=== PATIENT | female | born 1945 | race Caucasian/White ===

== ENCOUNTER → 2024-08-28 11:18 | Outpatient (REF) | payer OTHER, SELFPAY | LOC: RAD 11:18 | PROVIDERS: ATTENDING PHYSICIAN Student in an Organized Health Care Education/Training Program; FAMILY PHYSICIAN Nurse Practitioner Adult Health | DX: I35.0 Nonrheumatic aortic (valve) stenosis (principal) | CPT/HCPCS: 74174; 75572; Q9967 ==

== ENCOUNTER 2024-09-27 05:23 | Inpatient (IN) | payer OTHER, SELFPAY ==
[2024-09-21 08:16] VITALS: BMI 24.3
[2024-09-21 08:57] LABS: % Basophils 0.4 % (0-2); % Eosinophils 1.4 % (0-6); % Immature Granulocytes 0.3 % (0-0.5); % Lymphocytes 29.3 % (20.5-51.1); % Neutrophils 60.6 % (42.2-75.2); Absolute Eosinophils 0.1 10^3/uL (0-0.7); Absolute Lymphocytes 2.7 10^3/uL (1.2-3.4); Absolute Monocytes 0.8 10^3/uL (0.1-0.6); Absolute Neutrophils 5.7 10^3/uL (1.4-6.5); Hematocrit 40.4 % (37.0-47.0); Hemoglobin 13.5 g/dL (12.0-16.0); Mean Corp Hgb Conc. 33.4 g/dL (33.0-37.0); Mean Corpuscular Hgb 33.3 pg (27.0-31.0); Mean Corpuscular Volume 99.5 fL (81.0-99.0); Mean Platelet Volume 9.4 fL (7.4-10.4); Nucleated Red Blood Cells % 0 %; Platelet Count 202 10^3/uL (130-400); Red Blood Cell Count 4.06 10^6/uL (4.20-5.40); Red Cell Dist. Width 14.3 % (11.5-14.5); White Blood Cell Count 9.3 10^3/uL (4.8-10.8)
[2024-09-21 08:59] LABS: INR 0.92; PT 12.6 Sec (11.4-14.6)
[2024-09-21 09:00] LABS: APTT 25.4 Sec (23.4-35.0)
[2024-09-21 09:24] LABS: ALT (SGPT) 23 U/L (0-35); AST (SGOT) 26 U/L (14-36); Albumin 4.3 g/dl (3.5-5.0); Alkaline Phosphatase 81 U/L (38-126); Blood Urea Nitrogen 22 mg/dl (7-17); Calcium 9.5 mg/dl (8.4-10.2); Carbon Dioxide 28 mmol/L (22-30); Chloride 106 mmol/L (98-107); Direct Bilirubin 0.1 mg/dl (0.0-0.4); Estimated Creatinine Clearance 42 ml/min; Glucose 84 mg/dl (70-99); Potassium 3.9 mmol/L (3.5-5.1); Sodium 140 mmol/L (135-145); Total Bilirubin 0.8 mg/dl (0.2-1.3); Total Protein 6.5 g/dl (6.3-8.2); eGFR 57.66
[2024-09-21 09:38] LABS: Urine Albumin 2+ (Neg - Trace); Urine Bilirubin Negative (Negative); Urine Character Cloudy (Clear); Urine Color Yellow; Urine Glucose Negative (Negative); Urine Ketone Negative (Negative); Urine Leukocyte 1+ (Negative); Urine Nitrite Positive (Negative); Urine Occult Blood 3+ (Negative); Urine Specific Gravity 1.005 (<1.030); Urine Urobilinogen Negative (Neg - 1+)
--- NOTE | 2024-09-21 09:44 | W.PN.UPDATE ---
Update Note
Progress Note Update
Assessed Ms. Lopez in preadmission testing and confirmed medication list. She will hold fish oil starting 09/22/2024. Aspirin 81 mg initiated on 09/22/2024 and will continue including the morning of TAVR. She will arrive to the [facility] at 0530.
Informed patient that she will receive a phone call on Tuesday09/26/2024 to confirm time and location of arrival. Allowed for and answered questions.
[2024-09-21 10:23] LABS: Glycohemoglobin (HgbA1c) 5.3 % (4.0-5.6)
--- NOTE | 2024-09-21 10:37 | CM ---
Chart reviewed. Met with the patient in PAT. Reviewed preoperative and postoperative instructions, along with showering guidelines. Gave patient 2 soaps. Patient is agreeable to a home visit by CT Transitional RN. Patient is independent of
ADLS, lives alone in a 1 STH, 2 PIPPA, 0 DME. Patient son to transport patient home, but will not be staying with her. Plan is for the patient to return home with CT Transitional RN.
[2024-09-21 10:56] LABS: Urine Squamous Cell >30 /LPF (Few)
[2024-09-21 10:57] LABS: Urine Amorphous Seen
[2024-09-21 10:58] LABS: Urine Bacteria Many (Negative)
[2024-09-27] VITALS (18 sets, daily range): BP systolic 116–152; BP diastolic 51–111; BMI 24.0
--- NOTE | 2024-09-27 06:01 | W.CVOR.SURPR ---
CVOR Surgeon Immed Pre Op
-
I have examined this patient prior to performance of the scheduled procedure.
The patient's condition is unchanged from the time of the dictated/written History and
Physical and the patient is able to undergo the scheduled procedure.
I reviewed the plan of care and went over the TAVR procedure in detail. We discussed the risks and benefits, including but
not limited to PPM requirement (30%), stroke (2-3%), vascular injury (3%), valve embolization (1%), etc. She has
decided should it be needed to be ok for CPR/Shocks/Sternotomy/CPB. Consent was obtained. All questions answered to best of
my ability.
--- NOTE | 2024-09-27 06:30 | PTCARENOTE ---
Pt admitted for TAVR- clipped an prep complete- Dr. Buchanan in to see pt- Consent signed and placed on the front of the chart. Pt ambulates in the room as a self. SR on the monitor. Strength equal b/l.
[2024-09-27 08:27] LABS: ACT-LR - POC 236 Seconds (116-155)
[2024-09-27 08:34] LABS: ACT-LR - POC 232 Seconds (116-155)
--- NOTE | 2024-09-27 08:41 | CM ---
Reviewed chart. Mrs. Lopez is in the operating room today. Prior to admission she resides alone in a one story home with two steps to enter. Prior to admission she was independent with ambulation and adls. She does not have any DME in the home.
Will need to see her current functional level to see if she will h ave any skilled care needs. Medical work-up in progress. The discharge plan is to return home with home with a home visit by the Transitional Care Nurse when medically stable.
[2024-09-27 08:48] LABS: ACT-LR - POC 355 Seconds (116-155)
--- NOTE | 2024-09-27 09:04 | W.PN.CT.SURG ---
CT Surgery Operative Note
-
OPERATIVE REPORT
Preoperative Diagnosis: Severe aortic valve stenosis, symptomatic
Postoperative Diagnosis: Same
Procedure(s) Performed: Right trans femoral TAVR with a 26 mm Medtronic Evolut FX + device with BAV pre and post deployement
Date of Procedure: 09/27/2024
Comorbidities:
1. Severe symptomatic aortic stenosis, symptomatic
2. Hypertension
3. Hyperlipidemia
4. COPD
5. Osteoporosis
6. CAD
7. Renal insufficiency
8. IBS
9. Glaucoma
10. Smoker
Cardiac Surgeon: Coleman Buchanan MD, MS
Air Pollution Engineer: Brant Ludwig MD, PhD
Anesthesia: Conscious Sedation, Local
EBL: 100cc
Products: none
Implant: Medtronic Evolut 26mm FX + SN: [id number]
Indication(s) for Procedures: 79-year-old female with severe aortic stenosis. Symptomatic. CT-TAVR protocol revealed acceptable anatomy for a self-expanding TAVR valve.
Start time: 0752hrs
Deployment time: 0837hrs
End time: 0858hrs
Radiation Dose (mGy): 398.44
DAP (cm2.Gy): 37.4887
Fluoroscopy time (minutes): 17.9
Contrast volume (ml): 106
TAVR gradient (mmHg): 8mmHg
Heparin Dose: [id number]
Protamine Dose: 40mg
Final Valve Positioninmm:4mm
Recaptures: 2
Findings: Preoperative LVEF was 60% and was 70% following TAVR without inotropic support. Function was overall normal without regional wall motion abnormalities or dyskinesia. Following the initial deployment attempt, the valve did not appear to be
expanded at all, at this point we recaptured the valve and exchanged the device sheath for the original working sheath and performed a BAV with an 18 mm balloon. This was under rapid pacing. Again over the stiff wire within exchanged the working
sheath for the device. On this deployment the device appeared to be flowering better. At the conclusion of this deployment, transthoracic echocardiogram yielded a high-grade of approximately 14 mmHg with mild degree of paravalvular leak. On
fluoroscopy, the valve appeared to be somewhat underexpanded at the level of the scar. We opted to exchange the device sheath 1 more time for the working sheath and performed another balloon valvuloplasty with a 20 mm true balloon. Transthoracic
echocardiogram then demonstrated slight improvement in the paravalvular leak and a significant drop in the mean gradient to approximately 8 mmHg. Overall, the aortic valve was well seated with only trace to mild PVL. The patient did not require
pacing postoperative and was in sinus rhythm. There was successful placement of 26 mm Evolut FX+ TAVR valve without acute complications.
Access:
1. Device - R SECURITY INCIDENT RESPONSE ENGINEER, perclose x 2
2. Pigtail - L SECURITY INCIDENT RESPONSE ENGINEER + 6Fr angioseal
3. Transvenous Pacer - L CFV
Description of Procedure: The patient was taken to the woven label designer. Their identity and procedure to be performed were verified and they were positioned supine on the woven label designer table. Induction via conscious sedation with local analgesia. The patient was
then prepped and draped from chin to thigh in a sterile fashion. A preoperative time-out was performed with all members of the team present. Using fluoroscopy, bilateral femoral heads and their margins were identified. Arterial and venous access
were done with a micropuncture needle with Seldinger technique. Test pacing revealed capture with excellent threshold. Angiography confirmed proper puncture site and femoral artery integrity. Two Per-Close devices were used on the TAVR side. An AL1
catheter was used to deliver a extrastiff wire and insertion of the working sheath. An AL1 catheter with a straight stiff wire was used to access the LV. The stiff wire was then exchanged for a pigtail and LVEDP was measured here which is found to
be 19 mmHg. This was exchanged for Lunderquist wire. The valve was prepped and mounted on to the device carrier. An ACT of >250 was achieved. We verified x 3 under fluoroscopy that the valve was mounted correctly with paddles in appropriate
position. We than set our parameters to achieve a co-planar view with the pigtail positioned in the NCC. We advanced the device with it's in-line sheath into the descending thoracic aorta and over the arch into the root and positioned across the
aortic valve. Contrast fluoroscopy was used to visualize the prosthesis across the valve. We performed a quick pre-deployment time out. We verified positioning based on the pigtail and gentle contrast puffs. The valve was slowly deployed however on
the initial deployment attempt, it appeared the valve was not expanding at all. The device was then recaptured they pulled out the inline sheath and exchanged for the working sheath. While maintaining LV access with a stiff wire. We performed a
balloon valvuloplasty with an 18 mm true balloon under rapid pacing. We then reexchanged the working sheath for the inline sheath and again crossed the valve with the position located in the noncoronary cusp appendage here. Contrast was used to
verify depth and once we had annular contact under pacing at 120 bpm we then rotated L and looked at the left coronary cusp. It appeared to be a little bit shallow and so we partially recaptured device here and advanced to just 1 to 2 mm with good
effect. Device was then deployed fully until all paddles were off. The deployment device was withdrawn into the descending thoracic aorta while maintaining wire access across the valve. A transthoracic echocardiogram was performed which revealed a
mild degree of aortic valve insufficiency however more concerning lately the mean gradient was approximately 14 mmHg. We opted to exchange the working sheath back in place and this time performed a balloon valvuloplasty with a 20 mm true size
balloon. Transthoracic echo revealed an significant improvement in the mean gradient across the valve and reduction in paravalvular leak. This appeared to be acceptable now. The balloon was then removed from the groin and the sheath was removed
after exchanging for a J-wire. We then tightened down the Perclose devices and found that there was acceptable hemostasis. The pigtail was repositioned into the descending/abdominal and runoff aortogram was performed. There was no significant
stenosis or dissection of the bilateral iliofemoral systems with excellent runoff to the SFAs. All wires were removed and perclose snugged and cut. There was acceptable hemostasis of bilateral groins. 40 mg of protamine was given.
All instrument, sponge, and needle counts were confirmed to be correct x 2 at the end of the operation. The patient was transferred to the cardiac intensive care unit in stable condition.
I, Dr. Coleman Buchanan, was present, scrubbed for, and performed all critical elements of this procedure.
Coleman Buchanan MD, MS
Cardiothoracic Surgeon
[facility]
This operative dictation was created using the [employer] dictation system. Please excuse any grammatical, typographical, or 'sound alike' errors
[2024-09-27] MEDS: ANCEF IV (10:56)
[2024-09-27] MEDS: ANCEF 10 IV (10:56)
[2024-09-27] MEDS: ANESTHETIC LOZENGE 1 LOZENGE PO (11:49)
[2024-09-27] MEDS: ASPIR LOW (ENTERIC COATED) PO (11:50)
--- NOTE | 2024-09-27 13:24 | ITS.CL.PN ---
Automobile Mechanic - Procedure Note
Procedure
Procedure Note:
Procedure Note:
TRANSCATHETER AORTIC VALVE REPLACEMENT REPORT
Date of Procedure: 09/27/2024
Referring: Dr. Ben Valdovinos MD
Indication: severe symptomatic aortic stenosis
Operators: Marcial Ludwig MD, PhD (interventional cardiology); Dr. Coleman Buchanan MD (CT surgery)
Anesthesia: conscious sedation provided by the anesthesia staff
PROCEDURE: transfemoral, transcatheter aortic valve replacement with a Medtronic Evolut 26 mm Valve
ACCESS:
1. 6F left femoral vein (closure: manual hemostasis)
2. 6F left common femoral artery (closure: Angioseal)
3. 14 F right common femoral artery (closure: Perclose x2)
ULTRASOUND GUIDED VASCULAR ACCESS (left femoral vein): Ultrasound was utilized for vascular access. The vessel was visualized under ultrasound and noted to be patent. An image of the vessel was stored permanently in the patient's medical record.
Under direct ultrasound guidance, vascular access was obtained using a modified Seldinger technique and a 6 Mongolian sheath was placed.
ULTRASOUND GUIDED VASCULAR ACCESS (left femoral artery): Ultrasound was utilized for vascular access. The vessel was visualized under ultrasound and noted to be patent. An image of the vessel was stored permanently in the patient's medical record.
Under direct ultrasound guidance, vascular access was obtained using a modified Seldinger technique and a 6 Mongolian sheath was placed.
ULTRASOUND GUIDED VASCULAR ACCESS (right femoral artery): Ultrasound was utilized for vascular access. The vessel was visualized under ultrasound and noted to be patent. An image of the vessel was stored permanently in the patient's medical record.
Under direct ultrasound guidance, vascular access was obtained using a modified Seldinger technique and a 8 Mongolian sheath was placed.
HEMODYNAMIC DATA
LVEDP 15 mmHg
PROCEDURE NARRATIVE:
The patient was prepped and draped in standard sterile fashion. Conscious sedation was provided by the anesthesia staff. 6F left femoral vein and left common femoral artery access was obtained with ultrasound guidance using micropuncture technique
with verification of appropriate arteriotomy location via hand injection angiography. A temporary venous pacing wire was advanced via the left femoral vein to the right ventricle under fluoroscopic guidance with appropriate capture verified. A 5F
pigtail catheter was advanced via the left common femoral artery and seated in the non-coronary cusp. Angiography was performed to verify the cusp overlap angle.
8F right common femoral artery access was obtained with ultrasound guidance using micropuncture technique with verification of appropriate arteriotomy location via hand injection angiography. The arteriotomy was preclosed with two Perclose sutures
followed by replacement of the 8F sheath. Using an AL1 catheter, a Lunderquist wire was placed in the descending thoracic aorta. Over the Lunderquist, a 14F Cook sheath was placed. Heparin was given. The AL1 catheter was re-advanced through the
sheath to the level of the ascending aorta. The Lunderquist wire was exchanged for a soft tipped straight wire which was used to cross the aortic valve and deposit the AL1 in the LV apex. A J-wire was used to exchange the AL1 for a pigtail catheter
in the LV and LVEDP was measured. The Lunderquist wire was advanced through the pigtail catheter and seated in the LV apex. ACT was checked and confirmed to be >300 seconds.
The valve was inspected under fluoroscopy to confirm lack of infolding above the 4th node. The Cook sheath was removed, and the in-line sheath was advanced over the Lunderquist wire into the descending aorta. The valve was then advanced over the
aortic arch and into the left ventricle. In the cusp overlap view, the valve was slowly deployed to the point of flowering. The patient was paced to adequately lower pulse pressure as the valve was deployed through the rumble strips to 80%. There
was noted to be poor expansion of the valve suggestive of either significant calcification preventing valve expansion or possibly infolding. Thus, the valve was walked back to the descending aorta and removed from the body maintaining wire position
in the LV. The 14F sheath was replaced. The decision was made to perform balloon valvuloplasty prior to valve implantation.
A 18 mm True valvuloplasty balloon was advanced over the Lunderquist wire and into the aortic annulus. Valvuloplasty was performed under rapid pacing with good balloon expansion. The valvuloplasty balloon was removed.
The valve was reloaded and reinspected under fluoroscopy to confirm lack of infolding above the 4th node. The Cook sheath was removed, and the in-line sheath was advanced over the Lunderquist wire into the descending aorta. The valve was then
advanced over the aortic arch and into the left ventricle. In the cusp overlap view, the valve was slowly deployed to the point of flowering. The patient was paced to adequately lower pulse pressure as the valve was deployed through the rumble
strips to 80%. Injection demonstrated a non-coronary cusp implant depth of 3 mm. Angiography performed in an CROATIAN projection demonstrated left coronary cusp implant depth of -1 mm. Thus, a partial recapture was performed, the valve was advanced, and
redeployment was then performed with left coronary depth now 3 mm. The decision was made to proceed with full deployment. The Lunderquist wire was partially withdrawn to lift the nose cone of the valve delivery device. In the CROATIAN view, the delivery
handle was slowly rotated until both paddles were released from the superior aspect of the valve. The delivery device was withdrawn to the descending aorta and re-assembled. The patient was resuscitated by anesthesia with recovery of adequate blood
pressure. Telemetry demonstrating sinus rhythm. Aortography demonstrated good valve positioning, adequate coronary filling, and no significant aortic valve insufficiency. Echocardiography demonstrated at least mild paravalvular aortic insufficiency.
Mean valve gradient was 14 mmHg. The decision was made to proceed with valve post dilation. The valve delivery system was removed and replaced with a 14F Cook sheath. The Lunderquist valve was advanced across the valve.
A 20 mm True valvuloplasty balloon was advanced over the Lunderquist wire and into the aortic annulus. Valvuloplasty was performed under rapid pacing with good balloon expansion. The valvuloplasty balloon was removed. The valve was noted to display
better expansion on floroscopy. Echo was repeated and demonstrated improvement of the paravalvular leak (now mild) and decreased gradient to 9 mmHg.
The Cook sheath was removed and hemostasis obtained with the two Perclose sutures. Protamine was given. Aortoiliac angiography demonstrated no evidence of iliofemoral dissection/perforation and good runoff below the common femoral artery
bilaterally. The pacemaker and the pigtail catheter were removed. The left femoral artery sheath was removed using a 6F Angioseal. The left femoral venous sheath was removed with manual pressure.
RADIATION: dose to 98 mGy; DAP 33.4 Gy*cm2; fluoroscopy time 9.9 min
CONCLUSION: successful placement of a Evolut Fx Plus 26 mm transcatheter aortic valve via right transfemoral approach with no acute complications
Copy to: Dr. Ben Valdovinos MD (sweatband drummer); ESTRELLA Thompson (PCP)
Signed: Marcial Ludwig MD, PhD
--- NOTE | 2024-09-27 13:28 | W.PN.UPDATE ---
Update Note
Progress Note Update
Reviewed Ms. Lopez with the heart team in the preTAVR SDM and confirmed a 26mm EvolutFx+ via transfemoral access. Patient will resume aspirin post TAVR. LVEDP 19 mmHg. #26mm Evolut FX+ (serial# [id number]) successfully deployed via right transfemoral
access. Post implant MG 8mmHg.
[2024-09-27] MEDS: NON-FORMULARY ITEM INH (15:51)
[2024-09-27] MEDS: CRESTOR 10 MG PO (16:43)
[2024-09-27] MEDS: ANCEF 5 IV (16:44)
[2024-09-27] MEDS: TYLENOL 650 MG PO (18:34)
--- NOTE | 2024-09-27 19:29 | PTCARENOTE ---
Pt received from recovery area post TAVR. Bilateral femoral sites with dry and intact dressings, no sign of bleeding or hematoma. Telemetry showed sinus rhythm. Pt OOB with assist of one, slightly unsteady and at risk to fall, precautions in place,
pt calls for assistance. Temp 99.3 in evening, pt encouraged to use IS, given tylenol for mild right groin tenderness. Plan for ECHO on 09/28.
--- NOTE | 2024-09-28 00:57 | PTCARENOTE ---
Received patient at change of shift. A&Ox3. Vitals stable. Right femoral site clean, dry and intact. Soft to touch, little tender, little ecchymosis. Left groin site clean, dry, and intact. Soft to touch, little ecchymosis. Discussed plan of care
for evening. Patient verbalized understanding. Call thomas within reach.
[2024-09-28 04:45] VITALS: BP 119/62
--- NOTE | 2024-09-28 05:11 | W.PN.CT ---
Today's Communication / Plan
-
-pod #1
-no issues overnight
-nsr 80s. No cameron or pauses
-prolonged Qt -monitor
-labs pending
-Echo today
-current meds (ASA, Crestor)
-encourage IS, ambulate
-possible d/c
Assessment / Plan
-
- Severe symptomatic aortic valve stenosis- s/p Right trans femoral TAVR with a 26 mm Medtronic Evolut FX + device with BAV pre and post deployment on 09/27/24, pod #1
- Intraop TTE: LVEF was 60% pre and was 70% following TAVR without inotropic support, no wma or dyskinesia. Overall, the aortic valve was well seated with only trace to mild PVL.
- Hypertension
- Hyperlipidemia
- COPD
- Osteoporosis
- CAD
- Renal insufficiency
- IBS
- Glaucoma
- Smoker
Discussed patient care with: Nursing and Care Team
Subjective
-
Date of Service: September 27, 2024
Objective Data
-
Lab Results
09/21/24 08:26
09/21/24 08:26
PT 12.6 Sec (11.4-14.6) 09/21/24 08:26
INR 0.92 09/21/24 08:26
APTT 25.4 Sec (23.4-35.0) 09/21/24 08:26
Vital Signs
Vital Signs
Temp Pulse Resp BP Pulse Ox
98 F 98 16 130/57 95
09/27/24 19:49 09/27/24 18:30 09/27/24 19:49 09/27/24 14:46 09/27/24 19:49
CT Intake/Output/Weight
09/27/24 09/27/24 09/28/24
06:59 18:59 06:59
Intake Total 1739 / 1739
Balance 1739
SaO2: 95
Physical Exam
-
General: Awake and AOx3
Cardiovascular: Regular rate & rhythm and Murmur (1/6 systolic @ L midclav)
Respiratory: Clear and Decreased Breath Sounds
Incision: Other (groins are cdi, soft, no hematoma b/l)
Extremities: No Edema (DPs 2+ b/l)
Abdomen: soft, nontender, nondistended, + bowel sounds
Data Reviewed
-
Lab Results: Results Reviewed
Medications: Active Meds Reviewed
Chest X-Ray: Report Reviewed and Image Reviewed
ECG: Report Reviewed and Image Reviewed
[2024-09-28 06:00] VITALS: BMI 24.2
--- NOTE | 2024-09-28 06:08 | PTCARENOTE ---
Assumed care of pt at 0400. SR on TELE monitor, VSS, and AAO*3. Bilateral groin sites CDI. Pt denies any pain or discomfort and resting with call thomas in reach. Plan of care ongoing, see MAR and flowchart for full pt assessment.
--- NOTE | 2024-09-28 07:15 | W.DCSUMMARY ---
Discharge Summary
Discharge Data
Date of Admission: 09/27/24
Date of Discharge: 09/28/24
Total time spent discharging patient (in min): 25
-
Pending Results: No
Hospital Course
Primary care physician:
Dr. Erin Oliva
Outpatient name plate stamper:
Dr. Ben Valdovinos
Inpatient consultants:
CBC
Procedures:
1. Right trans femoral TAVR with a 26 mm Medtronic Evolut FX + device with BAV pre and post deployment
Primary Diagnosis:
1. Severe aortic stenosis
Secondary Diagnoses:
1. Hypertension
2. Hyperlipidemia
3. COPD
4. Osteoporosis
5. CAD
6. Renal insufficiency
7. IBS
8. Glaucoma
9. Smoker
HPI: 79-year-old female presented electively on 09/27 for a elective transfemoral transcatheter aortic valve replacement with Dr. Buchanan.
Hospital course: Patient was electively admitted on 09/27 for a transcatheter aortic valve replacement with Dr. Buchanan. 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 B/l groins remain stable. She was sent to IVU for the remainder
of their recovery. On 09/28, POD #1, B/L groins remained stable. Repeat TTE showed Left ventricular ejection fraction is 70-75% s/p 26mm Medtronic Evolut TAVR. Peak gradient 20mmHg/Mean gradient 12mmHg. Mild aortic regurgitation. She was deemed
stable for discharge.
Home medication changes:
See below
Discharge Plan
-
Patient Disposition: Home (Routine Discharge)
Discharge Diagnosis/Procedures: TF TAVR
Condition: Good
Diet: Low Fat, Low Cholesterol and 2 Gram Sodium
Activity: No strenuous activity
Driving Restrictions: No driving for 1 week
Bathing Restrictions: OK to Shower
Others Tests: Your 30-day follow up echocardiogram is scheduled for: 10/30/24 @ 12:[address] Valdovinos's office
Other Services: Cardiac Rehab
Wound Care: NO lotions, powders, or creams to puncture sites
Specialty Instructions: Weigh Daily- Call MD for wt gain/loss 3 lbs overnight/5 lbs in 1 week
Activity Restrictions/Additional Instructions:
Please call [facility] to schedule Cardiac Rehab [phone].
Referrals:
CT Transitional Care Nurse [Outside] - in one to two days (The Cardiothoracic Transitional Care Nurse will call you to set up a visit in 1-2 days.)
Ben Valdovinos MD [Active] - 11/05/24 11:00 am
Erin Oliva CRNP [Family Provider] - in four to six weeks (Please make an appointment in four to six weeks. )
Prescriptions:
New
acetaminophen 325 mg Tablet
650 mg PO Q4HPRN PRN (Reason: ROBLEDO, mild pain, or fever >101F) Qty: 0 0RF
Continued
ascorbic acid (vitamin C) [Vitamin C] 1,000 mg Tablet
1 g PO DAILY
zinc acetate 50 mg (zinc) Capsule
50 mg PO DAILY
fluticasone propionate 50 mcg/actuation [employer],Suspension
2 spray INTRANASAL DAILY
rosuvastatin 10 mg Tablet
10 mg PO DAILY
cholecalciferol (vitamin D3) [Vitamin D3] 50 mcg (2,000 unit) Capsule
50 mcg PO DAILY
Centrum Women 18-400 mg-mcg Tablet
1 tab PO DAILY
Trelegy Ellipta 100-62.5-25 mcg Blister With Device
1 inh INHALATION DAILY
aspirin 81 mg Tablet
81 mg PO DAILY
Held
omega 4-ofy-hzv-fish oil [Fish Oil] 1,200 (144-216) mg Capsule
1 cap PO DAILY
Hold Instructions: Resume on 10/05/24.
Discharge Orders:
Discharge Patient (As Directed); Ordered 09/28/24
Ordered By: Shilpi Louis
Care Plan Goals
Care Plan Goals:
Problem: Readiness for enhanced knowledge related to diagnosis and treatment plan
Goal: Understand your diagnosis and treatment plan needs, including medications if applicable.
Instructions: Know your diagnosis, underlying causes and treatment plan options, including medications if applicable. Consult with your health care team to learn about your diagnosis and treatment plan, including medications if applicable.
Discharge Date and Time
Print Language: ROMANIAN
[2024-09-28] MEDS: NON-FORMULARY ITEM 1 INH INH (08:33)
[2024-09-28 08:42] LABS: Hematocrit 33.1 % (37.0-47.0); Hemoglobin 11.2 g/dL (12.0-16.0); Mean Corp Hgb Conc. 33.8 g/dL (33.0-37.0); Mean Corpuscular Hgb 33.1 pg (27.0-31.0); Mean Corpuscular Volume 97.9 fL (81.0-99.0); Mean Platelet Volume 9.7 fL (7.4-10.4); Platelet Count 127 10^3/uL (130-400); Red Blood Cell Count 3.38 10^6/uL (4.20-5.40); White Blood Cell Count 8.2 10^3/uL (4.8-10.8)
[2024-09-28 09:09] LABS: Blood Urea Nitrogen 18 mg/dl (7-17); Calcium 9.1 mg/dl (8.4-10.2); Carbon Dioxide 24 mmol/L (22-30); Chloride 106 mmol/L (98-107); Estimated Creatinine Clearance 42 ml/min; Glucose 107 mg/dl (70-99); Potassium 4.2 mmol/L (3.5-5.1); Sodium 136 mmol/L (135-145); eGFR 57.66
[2024-09-28] MEDS: ASPIR LOW (ENTERIC COATED) 81 MG PO (09:10)
[2024-09-28] MEDS: CRESTOR PO (09:11)
--- NOTE | 2024-09-28 10:06 | CM ---
Reviewed chart. Met with Mrs. Lopez to review discharge plans. She states she is feeling great and is hooing to go home soon. She states prior to admission she reside alone in a one story home with one step to enter. She states prior to admission
she was independent with ambulation and adls. She states she has a rolling walker at home from her knee surgery but currently not using it. She states she has a prescription plan and uses [facility]. She states she has four granddaughter who
will be checking on her over the weekend. One granddaughter resides just around the corner from her. We reviewed a home visit by the Transitional Care Nurse. She is agreeable to a home visit. Medical work-up in progress. The discharge plan is to
return home with family support and a home visit by the Transitional Care Nurse when medically stable.
--- NOTE | 2024-09-28 10:07 | W.PN.ANS.POP ---
Anesthesia Post Operative
- Anesthesia Post Op Note
Vital Signs Stable-See Nursing Note: Yes
Airway Patent: Yes
Adequate Pain Control: Yes
Change in Mental Status: No
Current Postoperative Nausea & Vomiting: No
Anesthesia Complications: No
General Anesthetic Recall: No
Unplanned Admission: No
Post Op Hydration Adequate: Yes
- -
Pt awake and alert having [place] done at post op visit, no anesthesia r/t c/o at time of visit.
[2024-09-28 10:19] VITALS: BP 118/62
[2024-09-28 10:52] VITALS: BP 131/76
[2024-09-28 11:19] VITALS: BP 118/62; BP 131/76; PULSE 82; O2SAT 97
[2024-09-28 11:38] VITALS: BP 122/53
--- NOTE | 2024-09-28 13:06 | W.PN.CD ---
Today's Communication / Plan
-
home
Impression / Plan
-
Suzi Lopez is a 79 year old woman with past medical history significant for severe symptomatic aortic stenosis s/p Medtronic Evolute FX+ TAVR valve 09/27/24 (Chanel/Oziel). Post-dilation was performed after initial valve deployment with
reduction in mean gradient from 14 to 9 mmHg.
Patient did well overnight. No rhythm issues. Groin soft. Feels well with ambulation
TTE this morning reviewed and demonstrates hyperdynamic LVEF and TAVR gradient 12 mmHg. Labs stable Hb and Cr. Tele sinus rhythm.
Plan:
- discharge to home with outpatient follow up with outpatient cardiology Ben Valdovinos
- repeat TTE at 1 month
- cardiac rehab
- cont. asa/crestor
Physical Exam
Vital Signs/Labs
Vital Signs
Temp Pulse Resp BP Pulse Ox
36.7 C 108 16 119/62 96
09/28/24 11:40 09/28/24 08:37 09/28/24 11:40 09/28/24 04:45 09/28/24 11:40
09/27/24 09/28/24 09/29/24
06:59 06:59 06:59
Actual Weight 65.3 kg 66.1 kg
09/28/24 08:19
09/28/24 08:20
PT 12.6 Sec (11.4-14.6) 09/21/24 08:26
INR 0.92 09/21/24 08:26
APTT 25.4 Sec (23.4-35.0) 09/21/24 08:26
Physical Exam
Constitutional: No acute distress
Cardiovascular: Rhythm & rate is regular
Respiratory: Respiratory effort normal
Neuro/Psych: AO x 3
Other: Cath Site (cdi)
Data Reviewed
-
Date of Service: September 28, 2024
Medical Decision Making: Reviewed Test Results
EKG: Tracing Personally Visualized and interpreted
Echo: Tracing Personally Visualized and interpreted
Labs: Labs Reviewed by me
== END 2024-09-28 14:15 | disposition home or self-care (01) | DRG 267 ==
LOC: IVU 05:23
PROVIDERS: Physician Assistant Medical; ADMITTING PHYSICIAN Thoracic Surgery (Cardiothoracic Vascular Surgery); FAMILY PHYSICIAN Nurse Practitioner Adult Health
PROC: B44LZZZ Ultrasonography of Femoral Artery (ICD-10-PCS; 2024-09-27)
PROC: 02RF38N Replacement of Aortic Valve with Zooplastic Tissue, using Rapid Deployment Technique, Percutaneous Approach (ICD-10-PCS; 2024-09-27)
PROC: 027F3ZZ Dilation of Aortic Valve, Percutaneous Approach (ICD-10-PCS; 2024-09-27)
DX: I35.0 Nonrheumatic aortic (valve) stenosis (principal); I10 Essential (primary) hypertension; E78.5 Hyperlipidemia, unspecified; J44.9 Chronic obstructive pulmonary disease, unspecified; M81.0 Age-related osteoporosis without current pathological fracture; I25.10 Atherosclerotic heart disease of native coronary artery without angina pectoris; N28.9 Disorder of kidney and ureter, unspecified; K58.9 Irritable bowel syndrome, unspecified; H40.9 Unspecified glaucoma; F17.200 Nicotine dependence, unspecified, uncomplicated; Z60.2 Problems related to living alone; Z88.2 Allergy status to sulfonamides; Z88.1 Allergy status to other antibiotic agents
CPT/HCPCS: 93308; 33361; 36415; 71045; 71046; 76937; 80048; 80053; 81003; 81015; 82248; 83036; 85025; 85027; 85347; 85610; 85730; 86850; 86900; 86901; 87070; 87086; 93005; 93321; 93325; 94640; C1760; C1769; C1894; Q9967

== ENCOUNTER 2024-12-05 10:16 | Outpatient (RCR) | payer OTHER, SELFPAY | END 2024-12-05 23:59 | disposition home or self-care (01) | LOC: CRHB 10:16 | PROVIDERS: ATTENDING PHYSICIAN Internal Medicine Interventional Cardiology; FAMILY PHYSICIAN Nurse Practitioner Adult Health | DX: Z95.4 Presence of other heart-valve replacement (principal) | CPT/HCPCS: 93797; 93798; G0422; G0423 ==

== ENCOUNTER 2025-01-07 10:03 | Outpatient (RCR) | payer OTHER, SELFPAY | END 2025-01-07 23:59 | disposition home or self-care (01) | LOC: CRHB 10:03 | PROVIDERS: ATTENDING PHYSICIAN Internal Medicine Interventional Cardiology; FAMILY PHYSICIAN Nurse Practitioner Adult Health | DX: Z95.4 Presence of other heart-valve replacement (principal); I25.10 Atherosclerotic heart disease of native coronary artery without angina pectoris (principal) | CPT/HCPCS: G0422; G0423 ==

== ENCOUNTER 2025-02-04 10:13 | Outpatient (RCR) | payer OTHER, SELFPAY | END 2025-02-04 23:59 | disposition home or self-care (01) | LOC: CRHB 10:13 | PROVIDERS: ATTENDING PHYSICIAN Internal Medicine Interventional Cardiology; FAMILY PHYSICIAN Nurse Practitioner Adult Health | DX: I25.10 Atherosclerotic heart disease of native coronary artery without angina pectoris (principal); Z95.4 Presence of other heart-valve replacement | CPT/HCPCS: G0422; G0423 ==

== ENCOUNTER → 2025-02-06 09:32 | Outpatient (REF) | payer OTHER, SELFPAY ==
[2025-02-06 11:00] LABS: ALT (SGPT) 22 U/L (0-35); AST (SGOT) 30 U/L (14-36); Albumin 4.4 g/dl (3.5-5.0); Alkaline Phosphatase 76 U/L (38-126); Blood Urea Nitrogen 22 mg/dl (7-17); Calcium 9.5 mg/dl (8.4-10.2); Carbon Dioxide 27 mmol/L (22-30); Chloride 107 mmol/L (98-107); Glucose 88 mg/dl (70-99); HDL Cholesterol 94 mg/dl; LDL Cholesterol, Calculated 90 mg/dl; Potassium 4.7 mmol/L (3.5-5.1); Sodium 139 mmol/L (135-145); Total Protein 7.0 g/dl (6.3-8.2); Very Low Density Lipoprotein 24 mg/dl (0-30); eGFR 51.43
== END ==
LOC: REG 09:32
PROVIDERS: ATTENDING PHYSICIAN Internal Medicine Interventional Cardiology; FAMILY PHYSICIAN Nurse Practitioner Adult Health
DX: I35.0 Nonrheumatic aortic (valve) stenosis (principal); E78.5 Hyperlipidemia, unspecified
CPT/HCPCS: 36415; 80053; 80061